=== PATIENT | male | born 1985 | race Caucasian/White ===

== ENCOUNTER 2018-01-29 19:21 | Emergency (ER) | payer OTHER ==
[2018-01-29 19:37] VITALS: O2SAT 99
[2018-01-29] MEDS ORDERED: MOTRIN 600 MG PO ONE (19:39)
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
[2018-01-29] MEDS ORDERED: MOTRIN 600 MG ONE (19:43)
[2018-01-29] MEDS ORDERED: XYLOCAINE 1% HCL 20 ML MDV IJ ONE (20:05)
[2018-01-29] MEDS ORDERED: XYLOCAINE 1% HCL 20 ML MDV ONE (20:07)
[2018-01-29 21:38] VITALS: BP 133/78; PULSE 74
--- NOTE | 2018-01-29 21:45 | XRAY ---
Indication: Pain following injury. Comparison: None. 3 views of the left 4th finger demonstrates PIP posterior dislocation with soft tissue swelling and nondisplaced tiny corner fracture involving the head of the proximal phalanx medially. No other bony, articular, or soft tissue abnormalities.
--- NOTE | 2018-01-29 21:49 | XRAY ---
Indication: Post reduction. Comparison: Taken earlier in the day. 3 views of the left 4th finger demonstrates stable PIP posterior dislocation with soft tissue swelling. There are now 2 displaced tiny fracture fragments presumed from head of the proximal phalanx and base of the middle phalanx.
== END 2018-01-29 21:00 | disposition home or self-care (01) ==
LOC: ED 19:21
PROC: 0RSVXZZ Reposition Left Metacarpophalangeal Joint, External Approach (ICD-10-PCS; principal; 2018-01-29)
DX: S63.255A Unspecified dislocation of left ring finger, initial encounter (principal); Y35.813A Legal intervention involving manhandling, suspect injured, initial encounter
CPT/HCPCS: 26700; 73140; 96372; 99284; A9270-GY